=== PATIENT | female | born 1990 | race Caucasian/White ===

== ENCOUNTER → 2017-08-18 | Outpatient (CLI) | payer MEDICAID ==
[~2017-08-18] MED LIST: AUGM875T PO; BACT800T5 PO; CEPH500C3 PO; HYDR-3533 PO; IBUP800T23 PO; SERO300T2 PO; SERT100 PO
--- NOTE | 2017-08-19 19:18 | EKG ---
Date Performed: 08/18/2017 Time Performed: 14:08:40 PTAGE: 27 years EKG: Sinus rhythm . Normal ECG Since the prior tracing, there has been no significant change PREVIOUS TRACING : 09/27/2013 16.14 DOCTOR: Vin Rodriguez Interpretating Date/Time 08/19/2017 19:16:07
== END ==
LOC: HCAV 14:01
PROVIDERS: ATTEND Psychiatry & Neurology Child & Adolescent Psychiatry
DX: F31.81 Bipolar II disorder (principal); F41.1 Generalized anxiety disorder
CPT/HCPCS: 93005

== ENCOUNTER 2017-09-29 16:23 | Emergency (ER) | payer MEDICAID ==
[~2017-09-29] VITALS: Ht 167.6 cm; Wt 81.0 kg
[2017-09-29 16:25] VITALS: BP 118/77; PULSE 80; RESP 16; TEMP 98.2; O2SAT 98
--- NOTE | 2017-09-29 17:17 | PD ---
HPI Chief Complaint: GI Complaint Time Seen by Provider: 17:16 Travel History International Travel<30 days: No Contact w/Intl Traveler<30days: No Traveled to known affect area: No History of Present Illness HPI 27-year-old female came to the emergency room with history of left-sided chest pain and chest tightness on and off for past 2 weeks. Patient does housecleaning and says that lately she is getting the pain when she has done some amount of work which normally would not happen. Pain is nonradiating she not radiating. Currently she has some chest tightness and discomfort. She's been taking aspirin for this. She took 2 baby aspirins today before coming in. The pain is not getting better she wanted to be checked in. No history of cough, fever or chills. Patient is a smoker and smokes half a pack a day. She does have history of high cholesterol and is on medications for that. There is some family history especially both grandmothers in their 60s from heart attack. No associated syncopal episode. No recent long distance travel or procedures or any other prolonged immobilization. No history of DVT or PE in the past. Vital signs are stable. [facility] Past Medical History Narrative Medical List of her past medical, surgical, social and family history is reviewed from the nursing note. Hx Anticoagulant Therapy: No Bipolar Disorder: Yes Anxiety: Yes Depression: Yes Cardiovascular Problems: No Chemotherapy: No Cerebrovascular Accident: No Diabetes: No Diminished Hearing: No Headaches: Yes Psychiatric: Yes (IN PATIENT AT [facility] AND IN [facility].) Respiratory: No Immunizations Current: Yes Schizophrenia: Yes ?: Not : 3 Para: 1 Miscarriage: 1 : 1 Past Surgical History Hysterectomy: No Oral Surgery: Yes (wisdom teeth) Other Surgery: Yes (RHINOPLASTY) Social History Alcohol Use: Yes (SOC) Tobacco Use: Yes (1/2 PPD) Substance Use: No Allergies-Medications (Allergen,Severity, Reaction): Coded Allergies: No Known Allergies (Verified Adverse Reaction, Unknown, 09/29/17) Comments No known drug allergies. Reported Meds & Prescriptions Reported Meds & Active Scripts Active Reported Aspirin Children's (Aspirin) 81 Mg Chew 162 Mg CHEW DAILY Narrative Medication List of her home medications reviewed from the nursing note. Review of Systems Except as stated in HPI: all other systems reviewed are Neg Cardiovascular: Positive: Chest Pain or Discomfort Physical Exam Narrative GENERAL: Awake, alert, anxious SKIN: Focused skin assessment warm/dry. HEAD: Atraumatic. Normocephalic. EYES: Pupils equal and round. No scleral icterus. No injection or drainage. ENT: No nasal bleeding or discharge. Mucous membranes pink and moist. NECK: Trachea midline. No JVD. CARDIOVASCULAR: Regular rate and rhythm. No murmur appreciated. RESPIRATORY: No accessory muscle use. Clear to auscultation. Breath sounds equal bilaterally. No reproducible chest pain GASTROINTESTINAL: Abdomen soft, non-tender, nondistended. Hepatic and splenic margins not palpable. MUSCULOSKELETAL: No obvious deformities. No clubbing. No cyanosis. No edema. NEUROLOGICAL: Awake and alert. No obvious cranial nerve deficits. Motor grossly within normal limits. Normal speech. PSYCHIATRIC: Appropriate mood and affect; insight and judgment normal. Data Data Last Documented VS Orders Orders Electrocardiogram (09/29/17 16:29) Basic Metabolic Panel (Bmp) (09/29/17 17:29) Complete Blood Count With Diff (09/29/17 17:29) D-Dimer (09/29/17 17:29) Magnesium (Mg) (09/29/17 17:29) Prothrombin Time / Inr (Pt) (09/29/17 17:29) Troponin I (09/29/17 17:29) Ecg Monitoring (09/29/17 17:29) Bilateral Bp Monitoring (09/29/17 17:29) Iv Access Insert/Monitor (09/29/17 17:29) Oximetry (09/29/17 17:29) Oxygen Administration (09/29/17 17:29) Sodium Chloride 0.9% Flush (Ns Flush) (09/29/17 17:30) Chest, Pa & Lat (09/29/17 17:29) Ed Urine Pregnancytest Poc (09/29/17 17:29) Ketorolac Inj (Toradol Inj) (09/29/17 17:30) Ct Pulmonary Angiogram (09/29/17 19:34) Iohexol 350 Inj (Omnipaque 350 Inj) (09/29/17 20:31) Ed Discharge Order (09/29/17 21:18) Labs Laboratory Tests Test 09/29/17 17:30 09/29/17 18:15 White Blood Count 9.9 TH/MM3 Red Blood Count 4.63 MIL/MM3 Hemoglobin 12.5 GM/DL Hematocrit 36.7 % Mean Corpuscular Volume 79.4 FL Mean Corpuscular Hemoglobin 26.9 PG Mean Corpuscular Hemoglobin Concent 33.9 % Red Cell Distribution Width 13.3 % Platelet Count 281 TH/MM3 Mean Platelet Volume 8.9 FL Neutrophils (%) (Auto) 61.3 % Lymphocytes (%) (Auto) 23.0 % Monocytes (%) (Auto) 7.3 % Eosinophils (%) (Auto) 6.2 % Basophils (%) (Auto) 2.2 % Neutrophils # (Auto) 6.1 TH/MM3 Lymphocytes # (Auto) 2.3 TH/MM3 Monocytes # (Auto) 0.7 TH/MM3 Eosinophils # (Auto) 0.6 TH/MM3 Basophils # (Auto) 0.2 TH/MM3 CBC Comment DIFF FINAL Differential Comment Prothrombin Time 10.9 SEC Prothromb Time International Ratio 1.1 RATIO D-Dimer Quantitative (PE/DVT) 0.77 MG/L FEU Blood Urea Nitrogen 12 MG/DL Creatinine 0.70 MG/DL Random Glucose 92 MG/DL Calcium Level 9.3 MG/DL Magnesium Level 2.4 MG/DL Sodium Level 138 MEQ/L Potassium Level 3.5 MEQ/L Chloride Level 106 MEQ/L Carbon Dioxide Level 28.3 MEQ/L Anion Gap 4 MEQ/L Estimat Glomerular Filtration Rate 99 ML/MIN Troponin I LESS THAN 0.02 NG/ML MDM Medical Decision Making Medical Screen Exam Complete: Yes Emergency Medical Condition: Yes Medical Record Reviewed: Yes Interpretation(s) Twelve-lead EKG was reviewed by me. Normal sinus rhythm, normal axis, nonspecific ST-T wave changes. Heart rate of 72 bpm. Differential Diagnosis ACS, PE. Narrative Course 6:29 PM awaiting for chemistry, troponin and d-dimer. CBC is within normal limit. Chest x-ray is negative. She was given Toradol for pain. 7 PM Case was signed over to the oncoming ER physician. Procedures EKG Prior to Arrival: Edson Turner MD Sep 29, 2017 17:17
[2017-09-29] MEDS ORDERED: KETOROLAC TROMETHAMINE 30 MG/ML (IVP) VIAL IV PUSH ONE (17:30)
[2017-09-29] MEDS ORDERED: SODIUM CHLORIDE 0.9% FLUSH 10 ML FLUSH IVF PRN (17:30)
[2017-09-29 17:43] VITALS: O2SAT 97
[2017-09-29] MEDS ORDERED: ASPI81CH7 CHEW (17:43)
--- NOTE | 2017-09-29 17:52 | RADRPT ---
EXAM DATE/TIME: 09/29/2017 17:35 [facility] COMPARISON: CHEST PA & LAT, May 03, 2011, 19:27. INDICATIONS : Left upper chest pain and chest tightness. MEDICAL HISTORY : None. SURGICAL HISTORY : None. ENCOUNTER: Initial ACUITY: 2 weeks PAIN SCORE: 5/10 LOCATION: Left upper chest FINDINGS: PA and lateral views of the chest demonstrate the lungs to be symmetrically aerated without evidence of mass, infiltrate or effusion. The cardiomediastinal contours are unremarkable. Osseous structure s are intact. CONCLUSION: No acute disease. Curt Brown MD on September 29, 2017 at 17:49 Board Certified Radiologist. This report was verified electronically.
[2017-09-29 17:58] VITALS: BP_SYST 121; BP_SYST 126; BP_DIAS 73; BP_DIAS 75; PULSE 85; RESP 18; O2SAT 98
[2017-09-29 18:01] LABS: AUTOMATED NEUTROPHIL # 6.1 TH/MM3 (1.8-7.7); BASOPHIL # 0.2 TH/MM3 (0-0.2); BASOPHIL % 2.2 % (0.0-2.0); EOSINOPHIL # 0.6 TH/MM3 (0-0.4); EOSINOPHIL % 6.2 % (0.0-4.0); HEMATOCRIT 36.7 % (35.0-46.0); HEMOGLOBIN 12.5 GM/DL (11.6-15.3); LYMPHOCYTE # 2.3 TH/MM3 (1.0-4.8); MEAN CELL VOLUME 79.4 FL (80.0-100.0); MEAN CORPUSCULAR HEMOGLOBIN 26.9 PG (27.0-34.0); MEAN CORPUSCULAR HGB CONC 33.9 % (32.0-36.0); MEAN PLATELET VOLUME 8.9 FL (7.0-11.0); MONO % 7.3 % (0.0-8.0); MONOCYTE # 0.7 TH/MM3 (0-0.9); NEUT % 61.3 % (16.0-70.0); PLATELET COUNT 281 TH/MM3 (150-450); RED BLOOD COUNT 4.63 MIL/MM3 (4.00-5.30); RED CELL DISTRIBUTION WIDTH 13.3 % (11.6-17.2); WHITE BLOOD COUNT 9.9 TH/MM3 (4.0-11.0)
[2017-09-29 18:42] LABS: CHLORIDE 106 MEQ/L (98-107); SODIUM (NA) 138 MEQ/L (136-145)
[2017-09-29 18:45] LABS: BICARBONATE 28.3 MEQ/L (21.0-32.0); CALCIUM 9.3 MG/DL (8.5-10.1); GLUCOSE,RANDOM 92 MG/DL (74-106); MAGNESIUM 2.4 MG/DL (1.5-2.5)
[2017-09-29 18:46] LABS: BLOOD UREA NITROGEN 12 MG/DL (7-18)
[2017-09-29 18:47] LABS: INTERNATIONAL NORMALIZED RATIO 1.1 RATIO; PROTHROMBIN TIME - PATIENT 10.9 SEC (9.8-11.6)
[2017-09-29 18:49] LABS: GLOMERULAR FILTRATION RATE 99 ML/MIN (>89)
[2017-09-29 18:53] LABS: TROPONIN I LESS THAN 0.02 NG/ML (0.02-0.05)
[2017-09-29 19:22] LABS: D-DIMER 0.77 MG/L FEU (0.00-0.50)
--- NOTE | 2017-09-29 19:39 | PD ---
Physical Exam Date Seen by Provider: Sep 29, 2017 Time Seen by Provider: 19:00 Narrative The patient was signed out to me by Dr. Danielson at change of shift. Please see her H&P for further details. This is a 27-year-old female who presents today with complaints of chest pain. Patient states has been on and off 2 weeks. She describes as a tightness. Patient has no history of coronary artery disease. She does have a history of hyperlipidemia. Patient also does use tobacco products. EKG showed no evidence of acute changes. Cardiac enzymes were within normal limits. We are awaiting a d-dimer. Data Data Last Documented VS Vital Signs Date Time Temp Pulse Resp B/P (MAP) Pulse Ox O2 Delivery O2 Flow Rate FiO2 09/29/17 19:41 85 18 111/73 (86) 98 Room Air 09/29/17 16:25 98.2 Orders Orders Electrocardiogram (09/29/17 16:29) Electrocardiogram (09/29/17 17:29) Basic Metabolic Panel (Bmp) (09/29/17 17:29) Complete Blood Count With Diff (09/29/17 17:29) D-Dimer (09/29/17 17:29) Magnesium (Mg) (09/29/17 17:29) Prothrombin Time / Inr (Pt) (09/29/17 17:29) Troponin I (09/29/17 17:29) Ecg Monitoring (09/29/17 17:29) Bilateral Bp Monitoring (09/29/17 17:29) Iv Access Insert/Monitor (09/29/17 17:29) Oximetry (09/29/17 17:29) Oxygen Administration (09/29/17 17:29) Sodium Chloride 0.9% Flush (Ns Flush) (09/29/17 17:30) Chest, Pa & Lat (09/29/17 17:29) Ed Urine Pregnancytest Poc (09/29/17 17:29) Ketorolac Inj (Toradol Inj) (09/29/17 17:30) Ct Pulmonary Angiogram (09/29/17 19:34) Iohexol 350 Inj (Omnipaque 350 Inj) (09/29/17 20:31) Labs Laboratory Tests Test 09/29/17 17:30 09/29/17 18:15 White Blood Count 9.9 TH/MM3 Red Blood Count 4.63 MIL/MM3 Hemoglobin 12.5 GM/DL Hematocrit 36.7 % Mean Corpuscular Volume 79.4 FL Mean Corpuscular Hemoglobin 26.9 PG Mean Corpuscular Hemoglobin Concent 33.9 % Red Cell Distribution Width 13.3 % Platelet Count 281 TH/MM3 Mean Platelet Volume 8.9 FL Neutrophils (%) (Auto) 61.3 % Lymphocytes (%) (Auto) 23.0 % Monocytes (%) (Auto) 7.3 % Eosinophils (%) (Auto) 6.2 % Basophils (%) (Auto) 2.2 % Neutrophils # (Auto) 6.1 TH/MM3 Lymphocytes # (Auto) 2.3 TH/MM3 Monocytes # (Auto) 0.7 TH/MM3 Eosinophils # (Auto) 0.6 TH/MM3 Basophils # (Auto) 0.2 TH/MM3 CBC Comment DIFF FINAL Differential Comment Prothrombin Time 10.9 SEC Prothromb Time International Ratio 1.1 RATIO D-Dimer Quantitative (PE/DVT) 0.77 MG/L FEU Blood Urea Nitrogen 12 MG/DL Creatinine 0.70 MG/DL Random Glucose 92 MG/DL Calcium Level 9.3 MG/DL Magnesium Level 2.4 MG/DL Sodium Level 138 MEQ/L Potassium Level 3.5 MEQ/L Chloride Level 106 MEQ/L Carbon Dioxide Level 28.3 MEQ/L Anion Gap 4 MEQ/L Estimat Glomerular Filtration Rate 99 ML/MIN Troponin I LESS THAN 0.02 NG/ML [facility] Medical Record Reviewed: Yes Supervised Visit with BATSHEVA: No Differential Diagnosis ACS versus muscular skeletal pain versus pulmonary embolus Narrative Course 27-year-old female presents with intermittent chest pain on and off 2 weeks. Patient describes as a tightness. There is no shortness of breath or diaphoresis on my questioning. Patient's EKG shows no evidence of acute ST elevation or depression. Cardiac enzymes are within normal limits. D-dimer was elevated at 0.77. CT scan to rule out pulmonary embolism reveals no evidence of acute abnormalities. Upon discussion with both patient and her mother, after the patient chest pain center. The patient has opted to not stay overnight in the chest pain center. She states she will follow-up with her primary care physician, Dr. Amaral for possible outpatient testing. She is instructed to return should also any worsening symptoms. She is encouraged to stop smoking. Diagnosis Primary Impression: Chest pain Additional Impressions: Tobacco use Hyperlipidemia Additional Instruction: Stop smoking. Motrin as needed. Take with food. Disposition: 01 DISCHARGE HOME Condition: Stable Lamont Kelly MD Sep 29, 2017 19:39
[2017-09-29 19:41] VITALS: BP 111/73; PULSE 85; RESP 18; O2SAT 98
[2017-09-29] MEDS ORDERED: IOHEXOL 350 MG/ML 10 ML VIAL (for RAD DIAG) IVCONTRAST ONE (20:31)
--- NOTE | 2017-09-29 21:04 | RADRPT ---
EXAM DATE/TIME: 09/29/2017 20:20 [facility] COMPARISON: No previous studies available for comparison. INDICATIONS : Left chest pain. IV CONTRAST: 75 cc Omnipaque 350 (iohexol) IV RADIATION DOSE: 15.24 CTDIvol (mGy) MEDICAL HISTORY : None SURGICAL HISTORY : None. ENCOUNTER: Initial ACUITY: 1 day PAIN SCALE: 7/10 LOCATION: Left chest TECHNIQUE: Volumetric scanning of the chest was performed using a pulmonary embolism protocol MIP images were re constructed. Using automated exposure control and adjustment of the mA and/or kV according to patien t size, radiation dose was kept as low as reasonably achievable to obtain optimal diagnostic quality images. DICOM format image data is available electronically for review and comparison. Follow-up recommendations for detected pulmonary nodules are based at a minimum on nodule size and pa tient risk factors according to Fleischner Society Guidelines. FINDINGS: PULMONARY ARTERIES: No filling defects are seen in the pulmonary arteries through the segmental level. LUNGS: There is no consolidation or pneumothorax . No concerning pulmonary nodule is visualized. PLEURAE: There is no pleural thickening or pleural effusion. MEDIASTINUM: There is good visualization of the great vessels of the middle mediastinum. No evidence of mediastin al or hilar adenopathy/mass. MUSCULOSKELETAL: Within normal limits for patient age. MISCELLANEOUS: The visualized upper abdominal organs demonstrate no acute abnormality. CONCLUSION: Normal examination for a patient of this age. Demarco Carter MD on September 29, 2017 at 20:59 Board Certified Radiologist. This report was verified electronically.
[2017-09-29 21:21] VITALS: BP 123/72; PULSE 74; RESP 18; O2SAT 98
--- NOTE | 2017-09-30 15:40 | EKG ---
Date Performed: 09/29/2017 Time Performed: 16:37:36 PTAGE: 27 years EKG: Sinus rhythm NORMAL ECG Since the PREVIOUS TRACING , no significant change noted PREVIOUS TRACIN08/18/2017 14.08 DOCTOR: Jones Duran Interpretating Date/Time 09/30/2017 15:38:34
== END 2017-09-29 21:30 | disposition home or self-care (01) ==
LOC: PHED 16:23
DX: R07.9 Chest pain, unspecified (principal); E78.5 Hyperlipidemia, unspecified; E78.00 Pure hypercholesterolemia, unspecified; F31.9 Bipolar disorder, unspecified; F41.9 Anxiety disorder, unspecified; F20.9 Schizophrenia, unspecified; F17.200 Nicotine dependence, unspecified, uncomplicated; Z79.82 Long term (current) use of aspirin
CPT/HCPCS: 71046; 71275; 80048; 83735; 84484; 84703; 85025; 85379; 85610; 93005; 96374; 99285; J1885; Q9967